=== PATIENT | male | born 1995 | race Caucasian/White ===

== ENCOUNTER 2017-10-26 02:03 | Emergency (ER) | payer OTHER ==
[~2017-10-26] VITALS: Ht 180.3 cm; Wt 110.7 kg
[2017-10-26 02:05] VITALS: TEMP 36.4; O2SAT 94; Ht 180.3 cm; Wt 110.7 kg
[2017-10-26 03:05] LABS: CALCIUM 8.1 mg/dl (8.5-10.1); CREATININE 1.18 mg/dl (0.60-1.40); POTASSIUM 3.5 mmol/L (3.5-5.1)
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
[2017-10-26] MEDS ORDERED: APRE1TAB3 PO (05:11)
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
[2017-10-26 09:11] VITALS: BP 101/58; PULSE 86; O2SAT 100
== END 2017-10-26 09:18 | disposition home or self-care (01) ==
LOC: EDBD 02:03 → C.EDB 02:05
DX: F10.129 Alcohol abuse with intoxication, unspecified (principal); S09.90XA Unspecified injury of head, initial encounter; S01.81XA Laceration without foreign body of other part of head, initial encounter; X58.XXXA Exposure to other specified factors, initial encounter; Y90.8 Blood alcohol level of 240 mg/100 ml or more